=== PATIENT | male | born 1965 | race Caucasian/White ===

== ENCOUNTER 2023-02-21 14:25 | Emergency (ER) | payer MEDICARE, MEDICAID, SELFPAY ==
--- NOTE | ~2023-02-21 | XR_ITS ---
EXAMINATION: XR ABDOMEN KUB CLINICAL INDICATION: Foreign body question mesh with history of rectal prolapse COMPARISON: None available. TECHNIQUE: AP view of the abdomen. The entire rectum and anus is not included on the radiograph. FINDINGS: The bowel gas pattern is normal with no evidence of ileus or obstruction. Moderate stool seen throughout the colon. No unusual soft tissue calcifications are noted. Marked degenerative changes in the spine with scoliosis convex to right.. XR/XR KUB IMPRESSION: No evidence of bowel obstruction. Moderate stool seen throughout the colon. The distal rectum and anus are not included on the radiograph.
[2023-02-21 14:49] VITALS: BP 102/54; PULSE 70; RESP 16; TEMP 36.6; O2SAT 98; BMI 24.2
--- NOTE | 2023-02-21 14:52 | ED.GENADULT ---
HPI - General Adult General Chief complaint: Abdominal Pain Stated complaint: abd pain Time Seen by Provider: 02/21/23 21:32 Source: other Mode of arrival: ambulatory History of Present Illness HPI narrative: 57-year-old male with cognitive delays is brought in by his facility for concerns regarding a large string protruding from the rectum and a history of rectal prolapse repair at [facility]. Related Data Allergies Allergy/AdvReac Type Severity Reaction Status Date / Time metronidazole [METRONIDAZOLE] Allergy Unknown UNK Unverified 12/06/19 19:53 sulfamethoxazole Allergy Unknown UNK Unverified 12/06/19 19:53 [From BACTRIM] trimethoprim [From BACTRIM] Allergy Unknown UNK Unverified 12/06/19 19:53 Review of Systems Review of Systems: Pertinent positives and negatives as stated in HPI [facility] Past Medical History Source: nursing notes reviewed Social History Social History Advance Directives: No Advance Directives Information Provided: No Physical Exam ED Vital Signs: Vital Signs - 24 hr 02/21/23 14:49 02/21/23 19:39 02/21/23 22:37 Temperature 97.8 F 97.8 F 97.7 F Pulse Rate 70 57 68 Respiratory Rate 16 16 17 Blood Pressure 102/54 L 119/64 118/62 Pulse Oximetry 98 100 97 Oxygen Delivery Method Room Air Room Air Room Air BMI result Body Mass Index 24.2 VITAL SIGNS: Reviewed. GENERAL: Well developed, well nourished, in no acute distress. HEAD: Normocephalic/atrauatic EYES: PERRLA, EOMI EARS: Ext canals without abnormality NOSE: Nares patent bilateral OROPHARYNX: no oral lesions noted, posterior pharynx clear NECK: Supple, no adenopathy LUNGS: Normal breath sounds. No adventitious sounds or accessory muscle use. SpO2<97> CARDIOVASCULAR: Regular rate and rhythm without noted murmurs ABDOMEN: Soft, non-tender, non-distended with bowel sounds. RECTAL: [shelver- Irmelinda] there is a piece of cloth material protruding from the anus an with gentle pulling completely evacuated the rectum, digital exam did not demonstrate any abnormalities within the anal rectal area, no visualization rectal prolapse. MUSCULOSKELETAL: No tenderness, deformities, or effusions noted on gross inspection. EXTREMITIES: No cyanosis, clubbing or edema. SKIN: Inspection of the skin reveals no rashes NEUROLOGIC: Alert and oriented x 4. Strength and sensation to light touch were grossly intact x 4. Course Course Course Narrative: RME performed by Yumiko Cordova PA-C. Patient is a 57 year old assigned male at presenting to the emergency department with a large string like structure coming out of his rectum. snf staff states that in 2019 he had a rectal prolapse repair involving mesh. Staff states that they found a large string like structure coming from the rectum of the patient and when they attempted to pull on it, it was painful. snf staff states that the patient does have pica but they have not seen him eat anything specifically. Labs ordered. Patient placed back in the waiting room pending room availability and results. Medical Decision Making Medical Decision Making [facility] Narrative: 57-year-old male with history and clinical presentation most consistent with suspected ingested material that has passed. I reviewed all investigations and hematologic indices negative for leukocytosis or left shift, there is no anemia or thrombocytopenia. Chemistry indices are grossly within normal limits. KUB only demonstrated moderate stool throughout the colon otherwise anorectal area was not visualized. Patient has no obstructive symptoms and is otherwise discharged home. Differential Diagnosis Differential Diagnoses: The differential diagnosis associated with the presentation includes Please see the discussion above Admission/Observation Consideration of admission/observation: Escalation of care including admission/observation considered Please see the discussion above Lab Data [facility] Lab Attestation statement: I reviewed the patient's lab results. Please see the discussion above 02/21/23 16:24 02/21/23 16:24 Labs: Lab Results 02/21/23 Range/Units 16:24 WBC 4.5 L (4.8-10.8) X10*3/uL RBC 4.97 (4.60-5.80) X10*6/uL Hgb 16.0 (14.0-18.0) g/dl Hct 47.2 (42.0-52.0) % MCV 95.0 (80.0-98.0) fL MCH 32.2 (27.0-33.0) pg MCHC 33.9 (31.0-36.0) g/dl RDW 13.2 (11.0-16.0) % Plt Count 186 (160-400) X10*3/uL MPV 8.7 L (9.4-12.4) fL Immature Gran % (Auto) 0.2 (0.0-0.4) % Neut % (Auto) 55.0 (45-73) % Lymph % (Auto) 32.5 (20-40) % [place]itus % (Auto) 8.5 (2-11) % Eos % (Auto) 1.8 (0-4) % Baso % (Auto) 2.0 (0-2) % Lymph # (Auto) 1.5 (1.2-4.9) X10*3/uL [place]itus # (Auto) 0.4 (0.1-1.2) X10*3/uL Eos # (Auto) 0.1 (0.0-0.4) X10*3/uL Baso # (Auto) 0.1 (0.0-0.2) X10*3/uL Abs Immat Gran (auto) 0.01 (0.00-0.03) X10*3/uL Absolute Neuts (auto) 2.5 (2.0-8.3) x10*3/uL Absolute Nucleated RBC 0.000 (0.0-0.012) X10*3/uL Nucleated RBC % (auto) 0.0 (0.0-0.2) /100WBC Sodium 141 (135-145) mmol/L Potassium 4.0 (3.3-5.1) mmol/L Chloride 106 (96-108) mmol/L Carbon Dioxide 30 H (22-29) mmol/L Anion Gap 9 L (12-20) BUN 16 (9-16) mg/dL Creatinine 1.01 (0.5-1.4) mg/dL Estim Creat Clear Calc 53.1 Estimated GFR > 60 Random Glucose 91 (60-115) mg/dL Calcium 9.1 (8.4-10.2) mg/dL Magnesium 2.1 (1.6-2.6) mg/dL Total Bilirubin 0.3 (0.0-1.0) mg/dL AST 23 (5-37) U/L ALT 17 (0-40) U/L Alkaline Phosphatase 120 H (39-117) U/L Total Protein 7.4 (6.5-8.0) g/dL Albumin 4.0 (3.5-5.0) g/dL Radiology Impression Discussion of test interpretation with radiology: I have reviewed the radiologist's reading. Radiologist Impression: Please see the discussion above External Record Review External record reviewed: Outpatient record and Prior outpatient labs Discharge Plan Discharge Clinical Impression: Ingestion of foreign material Patient Disposition: Xfer Other Instructions: Foreign Body Ingestion (ED) Additional Instructions: 1. Resume all home medications. 2. Recommend observation of patient's consumption of nonfood items. Return to the ER for any worsening symptoms. Referrals: Neela Reyes MD [Primary Care Provider] -
[2023-02-21 16:28] LABS: MANUAL DIFF FLAG NO
[2023-02-21 16:34] LABS: Basophils Absolute Auto 0.1 X10*3/uL (0.0-0.2); Eosinophils Absolute Auto 0.1 X10*3/uL (0.0-0.4); Eosinophils Percent Auto 1.8 % (0-4); Hematocrit 47.2 % (42.0-52.0); Imm Gran Abs Auto 0.01 X10*3/uL (0.00-0.03); Imm Gran Pct Auto 0.2 % (0.0-0.4); Lymphocytes Absolute Auto 1.5 X10*3/uL (1.2-4.9); Lymphocytes Percent Auto 32.5 % (20-40); Mean Corpuscular HGB Conc 33.9 g/dl (31.0-36.0); Mean Corpuscular Hemoglobin 32.2 pg (27.0-33.0); Mean Platelet Volume 8.7 fL (9.4-12.4); Monocytes Absolute Auto 0.4 X10*3/uL (0.1-1.2); Monocytes Percent Auto 8.5 % (2-11); Neutrophils Absolute Auto 2.5 x10*3/uL (2.0-8.3); Platelet Count 186 X10*3/uL (160-400); Red Blood Count 4.97 X10*6/uL (4.60-5.80); Red Cell Distribution Width 13.2 % (11.0-16.0); White Blood Count 4.5 X10*3/uL (4.8-10.8)
[2023-02-21 16:55] LABS: Alanine Aminotransferase 17 U/L (0-40); Alkaline Phosphatase 120 U/L (39-117); Anion Gap 9 (12-20); Aspartate Amino Transferase 23 U/L (5-37); Bilirubin Total 0.3 mg/dL (0.0-1.0); Blood Urea Nitrogen 16 mg/dL (9-16); Calcium 9.1 mg/dL (8.4-10.2); Carbon Dioxide 30 mmol/L (22-29); Chloride 106 mmol/L (96-108); Creatinine Clr Calc Pharmacy 53.1; Estimated Glomerular Filt Rate > 60; Glucose Random 91 mg/dL (60-115); Magnesium 2.1 mg/dL (1.6-2.6); Sodium 141 mmol/L (135-145); Total Protein 7.4 g/dL (6.5-8.0)
[2023-02-21 19:39] VITALS: BP 119/64; PULSE 57; RESP 16; TEMP 36.6; O2SAT 100
--- NOTE | 2023-02-21 22:28 | PC.NURSE ---
Pt changed into hospital attMD María peña to bedside for primary eval.
--- NOTE | 2023-02-21 22:33 | PC.NURSE ---
Pt cleared for dc home with staff per MD Daniel, awaiting dc paperwork.
[2023-02-21 22:37] VITALS: BP 118/62; PULSE 68; RESP 17; TEMP 36.5; O2SAT 97
== END 2023-02-21 23:16 | disposition home or self-care (01) ==
PROVIDERS: Physician Assistant Medical; Emergency Provider Student in an Organized Health Care Education/Training Program; PCP Family Medicine
DX: T18.5XXA Foreign body in anus and rectum, initial encounter (principal); R10.2 Pelvic and perineal pain; W44.8XXA Other foreign body entering into or through a natural orifice, initial encounter; Y93.9 Activity, unspecified; Y92.9 Unspecified place or not applicable; Y99.9 Unspecified external cause status; Z79.899 Other long term (current) drug therapy
CPT/HCPCS: 36415; 74018; 80053; 83735; 85025; 99283; 99284

== ENCOUNTER 2023-07-25 17:38 | Emergency (ER) | payer MEDICARE, SELFPAY | END 2023-07-25 18:46 | disposition left against medical advice (07) | PROVIDERS: Emergency Provider Emergency Medicine | DX: Z53.21 Procedure and treatment not carried out due to patient leaving prior to being seen by health care provider (principal) ==

== ENCOUNTER 2025-02-05 11:02 | Emergency (ER) | payer MEDICARE, MEDICAID, SELFPAY ==
--- NOTE | ~2025-02-05 | CT_ITS ---
EXAMINATION: CT ABDOMEN PELVIS WITH IV CONTRAST HISTORY: rigth sided abd pain, nonverbal COMPARISON: Previous KUB February 2023 TECHNIQUE: CT scan of the abdomen and pelvis was performed following administration of 85 mL Omnipaque 350 using standard departmental protocol. Coronal and sagittal reformatted images were generated and reviewed. This CT exam was performed with one or more of the following dose reduction techniques: automated exposure control, adjustment of the mA and/or kV according to patient size, use of iterative reconstruction technique. DLP: 543 mGy-cm FINDINGS: LOWER CHEST: The visualized lung bases are clear. There is no pleural effusion. CARDIOVASCULATURE: The heart is normal in size. There is no pericardial effusion. LIVER: The liver is normal in size and contour. No liver mass is identified. The hepatic and portal veins are patent. GALLBLADDER / BILE DUCTS: The gallbladder is unremarkable. There is no intra or extrahepatic biliary ductal dilatation. SPLEEN: The spleen is normal in size. No focal splenic lesion is identified. PANCREAS: The pancreas is unremarkable in appearance. ADRENAL GLANDS: Within normal limits. KIDNEYS/RETROPERITONEUM: No renal calculi are identified. There is no hydronephrosis. No renal masses are identified. LYMPH NODES: No abdominal or pelvic lymphadenopathy. VASCULATURE: Normal. No aneurysm. MESENTERY/PERITONEUM: No free fluid. No masses. There is no free intraperitoneal gas. STOMACH: Underdistended and not well evaluated. SMALL BOWEL: The small bowel is normal in caliber. COLON: Constipation. Mild wall thickening of the rectosigmoid questionable for stercoral colitis related to chronic constipation. No dilated loops of bowel to suggest obstruction. APPENDIX: The appendix is not seen, however no inflammatory changes are seen adjacent to the cecum. URINARY BLADDER/PELVIC ORGANS: Mild diffuse bladder wall thickening. This may represent changes from bladder outlet obstruction versus mild cystitis. Prostate gland does not appear enlarged. Central prostate gland median lobe protrudes slightly into the base of the bladder. BONES / SOFT TISSUES: Severe lumbar scoliosis convex to the right. L5 spondylolysis and grade 1-2 spondylolisthesis of L5 with respect to S1. Degenerative changes of the spine. Small umbilical hernia containing fat. CT/CT abdomen pelvis w IV con IMPRESSION: Constipation. No evidence of obstruction. Question mild stercoral colitis of the rectosigmoid from chronic constipation. Mild diffuse bladder wall thickening. This may be related to bladder outlet obstruction. Differential would include mild cystitis. Correlation with urinalysis recommended. Electronically signed by: Shruthi Enriquez MD 02/05/2025 01:06 PM [facility]
--- NOTE | 2025-02-05 11:06 | ED.GENADULT ---
HPI - General Adult General Chief complaint: Abdominal Pain Stated complaint: UPPER ABD PAIN Time Seen by Provider: 02/05/25 11:05 Source: patient, EMS, RN notes reviewed and old records reviewed Mode of arrival: EMS Limitations: physical limitation History of Present Illness ED Provider: [place] HPI narrative: Patient is a 59-year-old male with history of Down syndrome, GERD, PICA, anemia, diverticulosis presenting to the emergency department from halfway who reported to EMS that patient began complaining of right-sided abdominal pain this morning. They reported to EMS that patient is typically ambulatory with a walker but he was unwilling to ambulate at all this morning. Patient is primarily nonverbal and unable to report symptoms or past medical history. MD complaint: abdominal pain Related Data Previous Rx's ?Medication ?Instructions ?Recorded acetaminophen 325 mg capsule 650 mg (2 x 325 mg) PO Q6H PRN 02/05/25 pain #20 caps simethicone 125 mg chewable tablet 125 mg PO TID PRN gas #20 tabs 02/05/25 Allergies Allergy/AdvReac Type Severity Reaction Status Date / Time metronidazole (METRONIDAZOLE) Allergy Unknown UNK Verified 02/05/25 11:19 sulfamethoxazole (From Allergy Unknown UNK Verified 02/05/25 11:19 BACTRIM) trimethoprim (From BACTRIM) Allergy Unknown UNK Verified 02/05/25 11:19 Review of Systems Review of Systems: as per hpi Yes all other systems are reviewed and are negative Constitutional: Constitutional: Reports as per HPI [facility] Social History Social History Smoked in Last 30 Days: No Use of substances other than those prescribed or required for medical reasons: No Advance Directives: Yes Advance Directives Information Provided: Yes Advance Directives on File: No Do you have a plan to hurt others: No Plan Physical Exam ED Vital Signs: Vital Signs - 24 hr 02/05/25 11:12 02/05/25 11:21 Temperature 99.0 F 99.0 F Pulse Rate 80 80 Respiratory Rate 14 14 Pulse Oximetry 96 96 Oxygen Delivery Method Room Air Room Air BMI result Body Mass Index 22.8 Vital signs have been reviewed and appear to be correct. Heart rate normal. Respiratory rate normal. Temperature normal. Oxygen saturation normal. Const General: cooperative and no acute distress HENMT Head: Yes atraumatic Ears: external ears normal General nose exam: Normal external nose present Face and sinus: Yes face symmetric Mouth: oropharynx normal and moist mucous membranes Throat: Yes uvula midline Eyes Pupils: Equal, round and reactive pupils present Neck Neck: Yes normal visual inspection and Yes supple Resp Effort & Inspection: normal respiratory effort Auscultation: clear to auscultation bilaterally Cardio Rate: regular rate Rhythm: regular rhythm Heart sounds: S1 normal heart sound present and S2 normal heart sound present GI Palpation (GI): Soft to palpation, Tenderness to palpation present (GI) in the RLQ, no guarding and No Rebound tenderness present Auscultation: normoactive bowel sounds General: Yes no CVA tenderness Back/Spine/Pelvis Back: no CVA tenderness Skin General skin exam: elasticity normal and turgor normal Neuro General: moves all extremities, no focal motor deficits and CN's II-XI intact bilaterally Cranial nerves: Yes Equal, round and reactive pupils present Extrem General: Yes full ROM, Yes no pedal edema and Yes no calf tenderness Medications Administered Discontinued Medications Generic Name Dose Route Start Last Admin Trade Name Freq PRN Reason Stop Dose Admin Iohexol 100 ml 02/05/25 12:50 02/05/25 12:51 Iohexol 350 Mg/Ml 100 Ml Infus..Btl IV 02/05/25 12:51 85 ml ONCE ONE Administration Medical Decision Making Medical Decision Making [facility] Narrative: Patient is a 59-year-old male with history of Down syndrome, GERD, PICA, anemia, diverticulosis presenting to the emergency department from [facility] who reported to EMS that patient began complaining of right-sided abdominal pain this morning. On exam patient is awake, alert, VS WNL, afebrile, normal neurological exam without focal deficits, physical exam findings as above. Given reported symptoms and physical exam findings, initial differential includes but is not limited to appendicitis, diverticulitis, cholecystitis, UTI, kidney stone. Wide differential given that patient is unable to report symptoms, will obtain labs, UA, CT A/P. Labs unremarkable. UA without evidence of infection. CT A/P notable for constipation without evidence of obstruction. My interpretation is in agreement with the radiologist's interpretation. Results discussed with patient, [facility] staff, and patient's sister. [facility] staff member notes that patient has regular bowel movements in his allowed a minimum of 15 minutes to use the bathroom with supervision. They also noted patient has docusate ordered PRN, but they haven't been giving it because he has been having regular bowel movements. Advised patient should be receiving This regularly for the next 1-2 weeks. Also advised patient can be medicated with Tylenol and simethicone as needed for discomfort, will send prescriptions as patient is at halfway and it needs to be ordered. Return precautions discussed. [facility] staff and sister verbalized understanding of and agreement with plan. Differential Diagnosis Differential Diagnoses: The differential diagnosis associated with the presentation includes as per [facility] Admission/Observation Consideration of admission/observation: Escalation of care including admission/observation considered Patient would have been admitted to the hospital and transferred to appropriate facility had their clinical presentation warranted hospital admission. Lab Data [facility] Lab Attestation statement: I reviewed the patient's lab results. As per [facility] 02/05/25 11:48 02/05/25 11:48 Labs: Lab Results 02/05/25 02/05/25 Range/Units 11:48 14:45 WBC 5.7 (4.8-10.8) X10*3/uL RBC 4.60 (4.60-5.80) X10*6/uL Hgb 15.0 (14.0-18.0) g/dl Hct 43.7 (42.0-52.0) % MCV 95.0 (80.0-98.0) fL MCH 32.6 (27.0-33.0) pg MCHC 34.3 (31.0-36.0) g/dl RDW 13.5 (11.0-16.0) % Plt Count 185 (160-400) X10*3/uL MPV 8.9 L (9.4-12.4) fL Immature Gran % (Auto) 0.4 (0.0-0.4) % Neut % (Auto) 72.8 (45-73) % Lymph % (Auto) 17.5 L (20-40) % [place] % (Auto) 7.2 (2-11) % Eos % (Auto) 0.9 (0-4) % Baso % (Auto) 1.2 (0-2) % Lymph # (Auto) 1.0 L (1.2-4.9) X10*3/uL [place] # (Auto) 0.4 (0.1-1.2) X10*3/uL Eos # (Auto) 0.1 (0.0-0.4) X10*3/uL Baso # (Auto) 0.1 (0.0-0.2) X10*3/uL Abs Immat Gran (auto) 0.02 (0.00-0.03) X10*3/uL Absolute Neuts (auto) 4.1 (2.0-8.3) x10*3/uL Absolute Nucleated RBC 0.000 (0.0-0.012) X10*3/uL Nucleated RBC % (auto) 0.0 (0.0-0.2) /100WBC PT 12.5 (11.2-13.5) SEC INR 1.0 (0.9-1.1) Sodium 140 (135-145) mmol/L Potassium 4.0 (3.3-5.1) mmol/L Chloride 107 (96-108) mmol/L Carbon Dioxide 26 (22-29) mmol/L Anion Gap 11 L (12-20) BUN 17 H (9-16) mg/dL Creatinine 0.90 (0.5-1.4) mg/dL Estim Creat Clear Calc 55.3 Estimated GFR > 60 Random Glucose 106 (60-115) mg/dL Lactic Acid 2.0 (0.5-2.0) mmol/L Calcium 8.8 (8.4-10.2) mg/dL Magnesium 2.1 (1.6-2.6) mg/dL Total Bilirubin 0.4 (0.0-1.0) mg/dL AST 31 (5-37) U/L ALT 20 (0-40) U/L Alkaline Phosphatase 114 (39-117) U/L Troponin I High Sens 4.1 (<3.5-35.0) ng/L Total Protein 7.0 (6.5-8.0) g/dL Albumin 3.9 (3.5-5.0) g/dL Lipase 20 (8-78) U/L Urine Color Yellow Urine Appearance Clear Urine pH 7.0 (5.0-9.0) Ur Specific Falcon >= 1.030 H (1.005-1.025) Urine Protein Negative (Neg-Trace) mg/dL Urine Glucose (UA) Negative (Negative) mg/dL Urine Ketones Negative (Negative) mg/dL Urine Blood Negative (Negative) Urine Nitrite Negative (Negative) Ur Leukocyte Esterase Negative (Negative) Independent Interpretation I performed an independent interpretation of an: CT Scan Interpretation: CT A/P notable for constipation without evidence of obstruction. Radiology Impression Discussion of test interpretation with radiology: I have reviewed the radiologist's reading. Radiologist Impression: CT/CT abdomen pelvis w IV con IMPRESSION: Constipation. No evidence of obstruction. Question mild stercoral colitis of the rectosigmoid from chronic constipation. Mild diffuse bladder wall thickening. This may be related to bladder outlet obstruction. Differential would include mild cystitis. Correlation with urinalysis recommended. Independent Historian Clinical information obtained from an independent historian. History obtained from or confirmed by: Other (sister, halfway staff) External Record Review External record reviewed: Inpatient record, Office record and Outpatient record Prescription Management I considered prescription management with: Other Discharge Plan Discharge Clinical Impression: Constipation Patient Disposition: Home, Self-Care Instructions: Constipation (DC) Additional Instructions: Phi was evaluated in the emergency department today for abdominal pain. His labs were reassuring and his urinalysis did not show evidence of infection. The CT scan of his abdomen and pelvis showed evidence of constipation. We recommend that for the next 1-2 weeks he receive docusate sodium daily instead of as needed. We are also sending a prescription for Tylenol which you can use as directed for pain. We are also sending a prescription for simethicone if it appears that his discomfort is due to gas. Follow up with his primary care provider as needed. He can also have prune juice, pear juice or peaches which will help to get his bowels moving. He should return to the emergency department if he develops worsening pain, fever 100.4? F or greater, persistent vomiting, blood in his vomit or stool or any other new or concerning symptoms. Prescriptions: New simethicone 125 mg tablet,chewable 125 mg PO TID PRN (Reason: gas) Qty: 20 0RF acetaminophen 325 mg capsule 650 mg PO Q6H PRN (Reason: pain) Qty: 20 0RF Print Language: Irish
[2025-02-05 11:12] VITALS: BP 142/70; PULSE 80; RESP 14; TEMP 37.2; O2SAT 96; BMI 22.8
--- NOTE | 2025-02-05 11:12 | ECG_ITS ---
Test Reason : AND PAIN Blood Pressure : */* mmHG Vent. Rate : 69 BPM Atrial Rate : 69 BPM P-R Int : 120 ms QRS Dur : 86 ms QT Int : 396 ms P-R-T Axes : 61 -73 37 degrees QTcB Int : 424 ms Normal sinus rhythm Left anterior fascicular block Abnormal ECG When compared with ECG of 08-Nov-2019 14:43, Criteria for Septal infarct are no longer Present Nonspecific T wave abnormality now evident in Anterior leads Referred By: Mari Dia Electronically Signed By: PATRICIA SMITH
[2025-02-05 11:21] VITALS: PULSE 80; RESP 14; TEMP 37.2; O2SAT 96
[2025-02-05 11:54] LABS: MANUAL DIFF FLAG NO
[2025-02-05 11:59] LABS: Hematocrit 43.7 % (42.0-52.0); Hemoglobin 15.0 g/dl (14.0-18.0); Imm Gran Abs Auto 0.02 X10*3/uL (0.00-0.03); Imm Gran Pct Auto 0.4 % (0.0-0.4); Lymphocytes Absolute Auto 1.0 X10*3/uL (1.2-4.9); Mean Corpuscular HGB Conc 34.3 g/dl (31.0-36.0); Mean Corpuscular Hemoglobin 32.6 pg (27.0-33.0); Mean Corpuscular Volume 95.0 fL (80.0-98.0); NRBC Abs Auto 0.000 X10*3/uL (0.0-0.012); NRBC Pct Auto 0.0 /100WBC (0.0-0.2); Platelet Count 185 X10*3/uL (160-400); Red Blood Count 4.60 X10*6/uL (4.60-5.80); White Blood Count 5.7 X10*3/uL (4.8-10.8)
[2025-02-05 12:12] LABS: INTERNATIONAL NORM RATIO 1.0 (0.9-1.1); Prothrombin Time 12.5 SEC (11.2-13.5)
[2025-02-05 12:16] LABS: Alanine Aminotransferase 20 U/L (0-40); Albumin Level 3.9 g/dL (3.5-5.0); Alkaline Phosphatase 114 U/L (39-117); Anion Gap 11 (12-20); Aspartate Amino Transferase 31 U/L (5-37); Blood Urea Nitrogen 17 mg/dL (9-16); Calcium 8.8 mg/dL (8.4-10.2); Carbon Dioxide 26 mmol/L (22-29); Chloride 107 mmol/L (96-108); Creatinine Clr Calc Pharmacy 55.3; Estimated Glomerular Filt Rate > 60; Lipase 20 U/L (8-78); Magnesium 2.1 mg/dL (1.6-2.6); Potassium 4.0 mmol/L (3.3-5.1); Sodium 140 mmol/L (135-145); Total Protein 7.0 g/dL (6.5-8.0)
[2025-02-05 12:24] LABS: Troponin-I High Sensitivity 4.1 ng/L (<3.5-35.0)
[2025-02-05] MEDS: iohexoL 350 MG/ML 100 ML INFUS..BTL IV (12:51)
[2025-02-05 14:54] LABS: Appearance Urine Clear; Glucose Urine UA Negative (Negative); PH 7.0 (5.0-9.0); Specific Gravity - Urine >= 1.030 (1.005-1.025)
[2025-02-05 15:48] VITALS: BP 132/64; PULSE 80; RESP 14; TEMP 37.2; O2SAT 96
== END 2025-02-05 16:13 | disposition home or self-care (01) ==
PROVIDERS: Registered Nurse Emergency; Emergency Provider Emergency Medicine; PCP Family Medicine
DX: K59.00 Constipation, unspecified (principal); Q90.9 Down syndrome, unspecified; Z88.2 Allergy status to sulfonamides; Z88.8 Allergy status to other drugs, medicaments and biological substances
CPT/HCPCS: 36415; 74177; 80053; 81003; 83605; 83690; 83735; 84484; 85025; 85610; 93005; 99285; Q9967

== ENCOUNTER → 2025-02-05 11:12 | Outpatient (BNV) | payer MEDICARE, SELFPAY | PROVIDERS: Emergency Provider Emergency Medicine; PCP Family Medicine; Visit Provider Internal Medicine | DX: I44.4 Left anterior fascicular block (principal) | CPT/HCPCS: 93010 ==

== ENCOUNTER → 2025-02-05 11:12 | Outpatient (BNV) | payer MEDICARE, SELFPAY | PROVIDERS: Emergency Provider Emergency Medicine; PCP Family Medicine; Visit Provider Radiology Diagnostic Radiology | DX: K59.00 Constipation, unspecified (principal); N32.89 Other specified disorders of bladder | CPT/HCPCS: 74177 ==